=== PATIENT | female | born 1935 | race Caucasian/White ===

== ENCOUNTER → 2016-09-19 | Outpatient (CLI) | payer MEDICARE ==
[~2016-09-19] MED LIST: ALEN70TA48 PO; ASPI-725 PO; HYDR12.530 PO; LEVO50TA11 PO; LEVO75TA10 PO; LOSA100T44 PO; MULT-175 PO; OMEP20CA10 PO; PRED20TA PO; SIMV20TA6 PO
== END ==
LOC: WC.BC 14:44
DX: Z12.31 Encounter for screening mammogram for malignant neoplasm of breast (principal); N64.59 Other signs and symptoms in breast
CPT/HCPCS: 77063; G0202